=== PATIENT | male | born 1955 | race African-American/Black ===

== ENCOUNTER 2024-04-10 18:04 | Emergency (ER) | payer OTHER, MEDICAID ==
[~2024-04-10] VITALS: Ht 185.4 cm; Wt 73.0 kg
[2024-04-10 18:11] VITALS: O2SAT 100
[2024-04-10 19:00] VITALS: BP 125/62; PULSE 85; RESP 15; TEMP 98.5
[2024-04-10] MEDS: TETANUS, DIPHTHERIA, PERTUSSIS VAC/PF 0.5ML (>10YR OLD) IM ONE (19:02)
== END 2024-04-10 19:12 | disposition home or self-care (01) ==
LOC: ER 18:04
DX: S61.216A Laceration without foreign body of right little finger without damage to nail, initial encounter (principal); I10 Essential (primary) hypertension; W26.0XXA Contact with knife, initial encounter; Y93.89 Activity, other specified; Y92.89 Other specified places as the place of occurrence of the external cause; Y99.8 Other external cause status
CPT/HCPCS: 12001; 90471; 90715; 99283

== ENCOUNTER 2024-07-16 05:42 | Emergency (ER) | payer OTHER, MEDICAID ==
[~2024-07-16] VITALS: Ht 185.4 cm; Wt 80.7 kg
[2024-07-16 05:43] VITALS: TEMP 37.00296
[2024-07-16] MEDS ORDERED: ASPIRIN 325MG TABLET PO ONE (06:30)
[2024-07-16 06:52] LABS: CHLORIDE 114 mEq/L (98-107); POTASSIUM 4.2 mEq/L (3.5-5.1); SODIUM 141 mEq/L (136-145)
[2024-07-16 06:53] LABS: CARBON DIOXIDE 26 mEq/L (21-32)
[2024-07-16 06:58] LABS: CREATININE 1.3 mg/dL (0.6-1.3); GLUCOSE 99 mg/dL (70-105); HEMATOCRIT. 40.4 % (42.0-52.0); HEMOGLOBIN. 13.4 g/dL (14.0-18.0); MEAN CORPUSCULAR HEMOGLOBIN 33.4 pg (28.0-32.0); MEAN CORPUSCULAR HGB CONC 33.2 g/dL (31.0-37.0); MEAN CORPUSCULAR VOLUME 100.5 fL (80.0-94.0); MEAN PLATELET VOLUME 7.7 fl (7.4-10.4); PLATELET 105 x1000/uL (130-400); RED BLOOD CELL COUNT 4.01 mill/uL (4.7-6.1); RED CELL DISTRIBUTION WIDTH 13.7 % (11.6-14.6); TROPONIN I HIGH SENSITIVITY 11 ng/L (3.0-53); UREA NITROGEN BLOOD 18 mg/dL (9-23); WHITE BLOOD COUNT 4.2 x1000/uL (4.5-11.0)
[2024-07-16 07:06] LABS: DIFFERENTIAL COMMENT 1
[2024-07-16 08:00] VITALS: BP 157/96; PULSE 52; RESP 15; O2SAT 98
[2024-07-16 09:11] LABS: TROPONIN I HIGH SENSITIVITY 13 ng/L (3.0-53)
[2024-07-16 14:03] LABS: PLATELET ESTIMATE SLIGHTLY DECREASED
== END 2024-07-16 08:53 | disposition left against medical advice (07) ==
LOC: ER 05:42 → CANBEDREQ 08:53
DX: R07.9 Chest pain, unspecified (principal); J45.909 Unspecified asthma, uncomplicated; F17.200 Nicotine dependence, unspecified, uncomplicated; J44.9 Chronic obstructive pulmonary disease, unspecified
CPT/HCPCS: 36415; 71045; 80048; 84484; 85025; 93005; 99285

== ENCOUNTER 2024-10-16 12:49 | Emergency (ER) | payer OTHER, MEDICAID | END 2024-10-16 13:51 | disposition left against medical advice (07) | LOC: ER 12:49 | DX: M54.2 Cervicalgia (principal); Z53.21 Procedure and treatment not carried out due to patient leaving prior to being seen by health care provider ==

== ENCOUNTER 2024-11-22 08:31 | Emergency (ER) | payer OTHER, MEDICAID ==
[~2024-11-22] VITALS: Ht 175.3 cm; Wt 80.0 kg
[2024-11-22 08:34] VITALS: O2SAT 99
[2024-11-22] MEDS ORDERED: HYDRALAZINE 20MG/ML VIAL IV ONE (08:45)
[2024-11-22 09:17] LABS: HEMATOCRIT. 46.4 % (42.0-52.0); HEMOGLOBIN. 15.6 g/dL (14.0-18.0); MEAN CORPUSCULAR HEMOGLOBIN 33.4 pg (28.0-32.0); MEAN CORPUSCULAR HGB CONC 33.6 g/dL (31.0-37.0); MEAN CORPUSCULAR VOLUME 99.6 fL (80.0-94.0); MEAN PLATELET VOLUME 7.3 fl (7.4-10.4); PLATELET 122 x1000/uL (130-400); RED BLOOD CELL COUNT 4.65 mill/uL (4.7-6.1); RED CELL DISTRIBUTION WIDTH 13.1 % (11.6-14.6); WHITE BLOOD COUNT 3.4 x1000/uL (4.5-11.0)
[2024-11-22 09:22] LABS: DIFFERENTIAL COMMENT 1
[2024-11-22 09:28] LABS: CHLORIDE 108 mEq/L (98-107); POTASSIUM 4.4 mEq/L (3.5-5.1); SODIUM 141 mEq/L (136-145)
[2024-11-22 09:29] LABS: CARBON DIOXIDE 26 mEq/L (21-32)
[2024-11-22 09:30] LABS: CALCIUM 9.8 mg/dL (8.7-10.4)
[2024-11-22 09:34] LABS: CREATININE 1.2 mg/dL (0.6-1.3); GLUCOSE 98 mg/dL (70-105)
[2024-11-22 09:35] LABS: TROPONIN I HIGH SENSITIVITY 9 ng/L (3.0-53); UREA NITROGEN BLOOD 18 mg/dL (9-23)
[2024-11-22 10:36] VITALS: BP 176/87; PULSE 70; RESP 18; TEMP 36.89184; O2SAT 99
[2024-11-23 00:07] LABS: PLATELET ESTIMATE NORMAL
== END 2024-11-22 11:07 | disposition home or self-care (01) ==
LOC: ER 08:43
DX: I10 Essential (primary) hypertension (principal); J44.9 Chronic obstructive pulmonary disease, unspecified
CPT/HCPCS: 99285; 71045; 80048; 83880; 85025; 84484; 36415; 93005; A4663; A4606

== ENCOUNTER 2025-02-22 20:36 | Emergency (ER) | payer OTHER, MEDICAID ==
[~2025-02-22] VITALS: Ht 185.4 cm; Wt 77.5 kg
[2025-02-22 21:08] VITALS: BP 135/88; PULSE 62; RESP 18; TEMP 36.7; O2SAT 100
[2025-02-22 21:51] LABS: HEMATOCRIT. 42.3 % (42.0-52.0); HEMOGLOBIN. 14.3 g/dL (14.0-18.0); MEAN CORPUSCULAR HEMOGLOBIN 33.3 pg (28.0-32.0); MEAN CORPUSCULAR HGB CONC 33.8 g/dL (31.0-37.0); MEAN CORPUSCULAR VOLUME 98.5 fL (80.0-94.0); MEAN PLATELET VOLUME 7.3 fl (7.4-10.4); PLATELET 111 x1000/uL (130-400); RED BLOOD CELL COUNT 4.29 mill/uL (4.7-6.1); RED CELL DISTRIBUTION WIDTH 13.2 % (11.6-14.6); WHITE BLOOD COUNT 4.5 x1000/uL (4.5-11.0)
[2025-02-22 21:52] LABS: DIFFERENTIAL COMMENT 1
[2025-02-22 21:59] LABS: CHLORIDE 106 mEq/L (98-107); POTASSIUM 4.5 mEq/L (3.5-5.1); SODIUM 141 mEq/L (136-145)
[2025-02-22 22:00] LABS: CARBON DIOXIDE 31 mEq/L (21-32)
[2025-02-22 22:05] LABS: CREATININE 1.2 mg/dL (0.6-1.3); GLUCOSE 97 mg/dL (70-105); UREA NITROGEN BLOOD 18 mg/dL (9-23)
[2025-02-22 22:07] LABS: ALANINE AMINOTRANSFERASE 24 IU/L (10-49); ASPARTATE AMINOTRANSFERASE 28 IU/L (<34); BILIRUBIN DIRECT 0.1 mg/dL (<=3.0); BILIRUBIN TOTAL 0.5 mg/dL (0.1-1.0)
[2025-02-22 22:17] LABS: PLATELET ESTIMATE DECREASED
[2025-02-23] MEDS: MAGNESIUM/ALUMINUM HYDROXIDE/SIMETHICONE 30ML UDC PO ONE (00:15)
[2025-02-23] MEDS ORDERED: MAG-55 MT (01:28)
[2025-02-23] MEDS ORDERED: POLY17PO3 MT (01:28)
== END 2025-02-23 01:47 | disposition home or self-care (01) ==
LOC: ER 20:36
DX: K59.00 Constipation, unspecified (principal); R14.0 Abdominal distension (gaseous); J44.9 Chronic obstructive pulmonary disease, unspecified; I10 Essential (primary) hypertension; Z79.899 Other long term (current) drug therapy
CPT/HCPCS: 36415; 74176; 80048; 80076; 85025; 99284

== ENCOUNTER 2025-04-30 14:51 | Emergency (ER) | payer OTHER, MEDICAID ==
[~2025-04-30] VITALS: Ht 185.4 cm; Wt 85.0 kg
[~2025-04-30 14:51] MED LIST: MAG-55 MT; POLY17PO3 MT
[2025-04-30 15:06] VITALS: O2SAT 99
[2025-04-30 15:51] LABS: BASOPHILS % 0.3 % (0.0-2.0); EOSINOPHILS % 0.4 % (0.0-5.0); HEMATOCRIT. 44.0 % (42.0-52.0); HEMOGLOBIN. 14.7 g/dL (14.0-18.0); LYMPHOCYTES % 40.2 % (20.0-50.0); MEAN PLATELET VOLUME 7.7 fl (7.4-10.4); MONOCYTES % 13.5 % (2.0-8.0); NEUTROPHILS % 45.6 % (40.0-76.0); PLATELET 116 x1000/uL (130-400); RED BLOOD CELL COUNT 4.49 mill/uL (4.7-6.1); RED CELL DISTRIBUTION WIDTH 13.1 % (11.6-14.6)
[2025-04-30 16:06] LABS: CREATININE 1.4 mg/dL (0.6-1.3)
[2025-04-30 16:07] LABS: UREA NITROGEN BLOOD 17 mg/dL (9-23)
[2025-04-30 16:08] LABS: ASPARTATE AMINOTRANSFERASE 30 IU/L (<34)
[2025-04-30 16:09] LABS: BILIRUBIN DIRECT 0.1 mg/dL (<=3.0); BILIRUBIN TOTAL 0.6 mg/dL (0.1-1.0); PROTEIN TOTAL 7.3 g/dL (6.0-8.3)
[2025-04-30 16:56] VITALS: BP 133/78; PULSE 88; RESP 18; TEMP 36.9; O2SAT 98
== END 2025-04-30 16:58 | disposition home or self-care (01) ==
LOC: ER 14:51
DX: I71.23 Aneurysm of the descending thoracic aorta, without rupture (principal); I71.40 Abdominal aortic aneurysm, without rupture, unspecified; R14.0 Abdominal distension (gaseous); E78.5 Hyperlipidemia, unspecified; I10 Essential (primary) hypertension; J44.9 Chronic obstructive pulmonary disease, unspecified; Z55.6 Problems related to health literacy; Z87.891 Personal history of nicotine dependence
CPT/HCPCS: 36415; 74176; 80048; 80076; 85025; 99284

== ENCOUNTER 2025-07-11 11:57 | Emergency (ER) | payer MEDICAID, MEDICARE ==
[~2025-07-11] VITALS: Ht 185.4 cm; Wt 77.0 kg
[2025-07-11 12:06] VITALS: O2SAT 100
[2025-07-11 12:37] LABS: BASOPHILS % 0.6 % (0.0-2.0); EOSINOPHILS % 0.5 % (0.0-5.0); HEMATOCRIT. 42.6 % (42.0-52.0); HEMOGLOBIN. 14.4 g/dL (14.0-18.0); LYMPHOCYTES % 42.2 % (20.0-50.0); MEAN PLATELET VOLUME 7.2 fl (7.4-10.4); MONOCYTES % 14.0 % (2.0-8.0); NEUTROPHILS % 42.7 % (40.0-76.0); PLATELET 105 x1000/uL (130-400); RED BLOOD CELL COUNT 4.37 mill/uL (4.7-6.1); RED CELL DISTRIBUTION WIDTH 13.1 % (11.6-14.6)
[2025-07-11 13:11] VITALS: BP 137/87; PULSE 70; RESP 16; TEMP 36.9; O2SAT 100
== END 2025-07-11 13:15 | disposition home or self-care (01) ==
LOC: ER 11:57
DX: K06.8 Other specified disorders of gingiva and edentulous alveolar ridge (principal); E78.5 Hyperlipidemia, unspecified; I10 Essential (primary) hypertension; J44.9 Chronic obstructive pulmonary disease, unspecified
CPT/HCPCS: 36415; 71045; 85025; 93005; 99285

== ENCOUNTER 2025-07-20 07:41 | Emergency (ER) | payer MEDICARE, MEDICAID ==
[~2025-07-20] VITALS: Ht 185.4 cm; Wt 77.0 kg
[2025-07-20 07:43] VITALS: O2SAT 99
[2025-07-20 07:54] VITALS: BP 146/89; PULSE 54; RESP 16; TEMP 36.6; O2SAT 100
== END 2025-07-20 09:32 | disposition left against medical advice (07) ==
LOC: ER 07:41
DX: M25.561 Pain in right knee (principal); M25.562 Pain in left knee; Z53.21 Procedure and treatment not carried out due to patient leaving prior to being seen by health care provider

== ENCOUNTER 2025-10-28 15:49 | Emergency (ER) | payer MEDICARE, MEDICAID ==
[~2025-10-28] VITALS: Ht 185.4 cm; Wt 77.0 kg
[2025-10-28 15:51] VITALS: TEMP 36.9
[2025-10-28 16:02] VITALS: TEMP 98.42
[2025-10-28 17:42] LABS: HEMATOCRIT. 42.1 % (42.0-52.0); HEMOGLOBIN. 14.1 g/dL (14.0-18.0); MEAN PLATELET VOLUME 7.6 fl (7.4-10.4); PLATELET 106 x1000/uL (130-400); RED BLOOD CELL COUNT 4.28 mill/uL (4.7-6.1); RED CELL DISTRIBUTION WIDTH 13.2 % (11.6-14.6)
[2025-10-28 17:57] LABS: CREATININE 1.2 mg/dL (0.6-1.3); UREA NITROGEN BLOOD 11 mg/dL (9-23)
[2025-10-28 17:58] LABS: TROPONIN I HIGH SENSITIVITY 9 ng/L (3.0-53)
[2025-10-28 18:00] LABS: EOSINOPHILS % MANUAL 3.0 % (0.0-5.0); LYMPHOCYTES % MANUAL 41.0 % (20.0-50.0); MONOCYTES % MANUAL 15.0 % (2.0-8.0); NEUTROPHILS % MANUAL 41.0 % (45.0-75.0); PLATELET ESTIMATE DECREASED
[2025-10-28] MEDS ORDERED: ALBU90AE INH (18:32)
[2025-10-28] MEDS ORDERED: P50 MT (18:32)
[2025-10-28] MEDS ORDERED: AZIT250T12 MT (18:32)
[2025-10-28] MEDS: AZITHROMYCIN 500 MG TABLET PO ONE (18:40)
[2025-10-28] MEDS: PREDNISONE 20MG TABLET PO ONE (18:40)
[2025-10-28] MEDS: IPRATROPIUM BROMIDE (0.02%) 0.5MG/2.5ML NEB HHN ONE (18:44)
[2025-10-28] MEDS: ALBUTEROL (0.083%) 2.5MG/3ML NEB HHN ONE (18:46)
[2025-10-28 18:51] VITALS: PULSE 82; RESP 16; O2SAT 96
[2025-10-28 19:03] VITALS: BP 145/85; PULSE 65; RESP 20; O2SAT 100
== END 2025-10-28 19:03 | disposition home or self-care (01) ==
LOC: ER 15:49
DX: J44.1 Chronic obstructive pulmonary disease with (acute) exacerbation (principal); R05.9 Cough, unspecified; I10 Essential (primary) hypertension; Z87.891 Personal history of nicotine dependence; Z86.79 Personal history of other diseases of the circulatory system
CPT/HCPCS: 99285; 71045; 80048; 85025; 84484; 36415; 94640; 93005; J7512; 94070; 94664